=== PATIENT | male | born 1955 | race Asian ===

== ENCOUNTER → 2018-02-07 | Day surgery (SDC) | payer OTHER ==
[~2018-02-07] MED LIST: LIDOCAINE HCL 2% LOCAL INJ 5 ML SDV VIAL INJ ONE; PROPOFOL IV EMULSION 10 MG/ML 20 ML VIAL ONE
[2018-02-07 14:05] VITALS: BP 131/73
--- NOTE | 2018-02-07 14:50 | Operative Report ---
DATE OF PROCEDURE: February 07, 2018 PROCEDURE: Colonoscopy. PREOPERATIVE DIAGNOSIS: Here for colon cancer screening. PROCEDURE: After informed written consent and premedications with monitored anesthesia care, standard adult video Olympus colonoscope was introduced into the rectum and all the way into the cecum and terminal ileum. Terminal ileum and cecum appeared to be normal. The hepatic flexure showed 2 polyps, which were removed by hot snare. The patient also had polyps in the descending colon and in the area of the splenic flexure removed by cold snare. Small internal hemorrhoids were noted. IMPRESSION 1. Colon polyps. 2. Hemorrhoids. RECOMMENDATIONS: Avoid aspirin and NSAIDs for 2 weeks. Colonoscopy in 3 years. The patient was advised to follow up in the office in 3-4 weeks. Job#: [id number] [email or web address]
== END | disposition home or self-care (01) ==
LOC: OR 12:01
PROVIDERS: ATTEND Internal Medicine Gastroenterology
DX: Z12.11 Encounter for screening for malignant neoplasm of colon (principal); D12.3 Benign neoplasm of transverse colon; D12.4 Benign neoplasm of descending colon; K64.8 Other hemorrhoids; Z71.3 Dietary counseling and surveillance; E66.3 Overweight; Z01.810 Encounter for preprocedural cardiovascular examination; Z68.25 Body mass index [BMI] 25.0-25.9, adult; Z87.891 Personal history of nicotine dependence
CPT/HCPCS: 45385; 93005; J2001; J2704; 45378; 45384